=== PATIENT | male | born 1930 | race Caucasian/White ===

== ENCOUNTER 2016-09-07 19:50 | Inpatient (IN) | payer MEDICAID ==
[~2016-09-07] VITALS: Ht 172.7 cm; Wt 86.0 kg
[2016-09-07 21:15] LABS: URINE BLOOD (Dip) POC 1+ (NEGATIVE)
[2016-09-07] MEDS ORDERED: SODIUM CHLORIDE 0.9% 1L BAG IV* STA (21:20)
[2016-09-07] MEDS ORDERED: CEFEPIME 2GM/50 ML (PMX) 50 ML IVPB STA (21:20)
[2016-09-07] MEDS ORDERED: ACETAMINOPHEN 500 MG TAB PO STA (21:23)
[2016-09-07] MEDS ORDERED: VANCOMYCIN 1 GM (PMX) 250 ML IVPB ONE (21:30)
[2016-09-07] MEDS ORDERED: OMEG1CAP30 PO (21:43)
[2016-09-07] MEDS ORDERED: AMLO-145 PO (21:45)
[2016-09-07] MEDS ORDERED: IBUP-1542 PO (21:45)
[2016-09-07] MEDS ORDERED: PANT40TA4 PO (21:46)
[2016-09-07] MEDS ORDERED: KETO10DR5 OP (21:49)
[2016-09-07 21:55] LABS: ADD UMIC YES; UR ASCORBIC ACID NEGATIVE (NEGATIVE); UR BACTERIA MODERATE /HPF (NONE SEEN); UR BILIRUBIN (Dip) NEGATIVE (NEGATIVE); UR BLOOD (Dip) 1+ mg/dL (NEGATIVE); UR CLARITY SLIGHTLY CLOUDY (CLEAR); UR COLOR YELLOW (YELLOW); UR GLUCOSE (Dip) NEGATIVE (NEGATIVE); UR KETONES (Dip) NEGATIVE (NEGATIVE); UR LEUKOCYTE ESTERASE (Dip) 3+ Leu/ul (NEGATIVE); UR NITRITE (Dip) POSITIVE (NEGATIVE); UR RBC 12 /HPF (0-5); UR SPECIFIC GRAVITY (Dip) 1.018 (1.003-1.030); UR TOTAL PROTEIN (Dip) 2+ mg/dl (NEGATIVE); UR UROBILINOGEN (Dip) 2+ mg/dL (NEGATIVE)
[2016-09-07 22:13] LABS: WHITE BLOOD COUNT 10.2 10^3/ul (4.8-10.8)
[2016-09-07 22:14] LABS: BASOPHILS % 0.3 % (0.0-2.0); EOSINOPHILS % 0.1 % (0.0-7.0); HEMATOCRIT 40.7 % (42.0-52.0); HEMOGLOBIN 14.3 g/dl (14.0-18.0); MEAN CORPUSCULAR HEMOGLOBIN 32.1 pg (29.0-33.0); MEAN CORPUSCULAR HGB CONC 35.1 g/dl (32.0-37.0); MEAN CORPUSCULAR VOLUME 91.5 fl (82.0-101.0); MEAN PLATELET VOLUME 11.2 fl (7.4-10.4); MONOCYTE # 1.4 10^3/ul (0.3-0.9); MONOCYTES % 13.9 % (0.0-11.0); NEUTROPHIL # 7.7 10^3/ul (1.6-7.5); NEUTROPHILS % 75.2 % (39.0-77.0); PLATELET COUNT 126 10^3/UL (140-415); POSITIVE DIFF @See below; RED BLOOD COUNT 4.45 10^6/ul (4.70-6.10); RED CELL DISTRIBUTION WIDTH 13.9 % (11.5-14.5)
[2016-09-07 22:30] LABS: INR 0.9; PROTIME 12.1 Sec (12.2-14.2); PT RATIO 0.9
[2016-09-07 22:31] LABS: PARTIAL THROMBOPLASTIN TIME 32.5 Sec (25.0-35.0)
--- NOTE | 2016-09-07 22:34 | RADRPT ---
PROCEDURE: XR Chest. CLINICAL INDICATION: Possible sepsis. TECHNIQUE: PA and Lateral views of the chest were obtained. COMPARISON: None. FINDINGS: Cardiomegaly with tortuous thoracic aorta. Mild left lung base atelectasis versus airspace disease. Slight atelectasis at the right lung base. No signs of pleural fluid or pneumothorax are seen. The osseous structures and soft tissues are unremarkable. IMPRESSION: Mild left lung base atelectasis versus airspace disease. RPTAT: [facility] Physician Vazquez Date Time Electronically viewed and signed by Physician Vazquez on 09/07/2016 22:34 RS/
[2016-09-07 22:39] LABS: ALANINE AMINOTRANSFERASE 50 IU/L (13-69); ALBUMIN 4.4 g/dl (3.3-4.9); ALKALINE PHOSPHATASE 141 IU/L (42-121); ANION GAP 20 (8-16); ASPARTATE AMINO TRANSFERASE 41 IU/L (15-46); BILIRUBIN,INDIRECT 0.9 mg/dl (0-1.1); BILIRUBIN,TOTAL 0.9 mg/dl (0.2-1.3); BLOOD UREA NITROGEN 17 mg/dl (7-20); CALCIUM 9.2 mg/dl (8.4-10.2); CARBON DIOXIDE 26 mmol/L (21-31); CHLORIDE 96 mmol/L (97-110); CREATININE 0.64 mg/dl (0.61-1.24); GLUCOSE 115 mg/dl (70-220); POTASSIUM 4.7 mmol/L (3.5-5.1); SODIUM 137 mmol/L (135-144); TOTAL PROTEIN 8.4 g/dl (6.1-8.1)
[2016-09-07 22:58] LABS: TROPONIN-I < 0.012 ng/ml (0.00-0.12)
[2016-09-07] MEDS ORDERED: SOD CHLORIDE 0.9% 1,000 ML IV SCH (23:25)
--- NOTE | 2016-09-07 23:29 | ERA ---
ER Documentation Chief Complaint Date/Time DATE: 09/07/16 TIME: 23:26 Chief Complaint FEVER +N/V AND FREQUENT URINATION X 2 DAYS HPI This 85-year-old male complains of frequent urination with fever over the past 2 days. He said one episode of nausea vomiting. No abdominal pain no diarrhea no cough he does have a mild headache. He has no hematuria. Patient says that he is having occasional urge incontinence at times. No chest pain or shortness of breath. ROS All systems reviewed and are negative except as per history of present illness. Medications Home Meds Reported Medications Ketotifen Fumarate (Alaway) 10 Ml Drops, 10 ML OP BID, BOTTLE 09/07/16 Pantoprazole* (Pantoprazole*) 40 Mg Tablet.dr, 40 MG PO AC BREAKFAST, TAB 09/07/16 Ibuprofen* (Ibuprofen*) 600 Mg Tablet, 600 MG PO Q6H, TAB 09/07/16 Amlodipine Besylate* (Amlodipine Besylate*) 5 Mg Tablet, 5 MG PO DAILY Y for PRN , #30 TAB 09/07/16 Conway-3 Fatty Acids/Fish Oil ([place] 3 Fish Oil Softgel) 1 Each Capsule.dr, 1 EACH PO BID 09/07/16 Allergies Allergies: Coded Allergies: No Known Allergies (Verified Allergy, Unknown, 09/07/16) PMhx/Soc History of Surgery: No Anesthesia Reaction: No Hx Neurological Disorder: Yes (Dementia) Hx Respiratory Disorders: No Hx Cardiac Disorders: Yes (HTN) Hx Psychiatric Problems: No Hx Miscellaneous Medical Probl: Yes (ULCER) Hx Alcohol Use: No Hx Substance Use: No Hx Tobacco Use: No Smoking Status: Never smoker FmHx Family History: No coronary disease Physical Exam Vitals Vital Signs Date Time Temp Pulse Resp B/P Pulse Ox O2 Delivery O2 Flow Rate FiO2 09/07/16 21:10 109 20 140/88 99 Room Air 09/07/16 19:53 101.2 114 20 132/64 94 Physical Exam Const: Well-developed, well-nourished, nontoxic-appearing Head: Atraumatic, normocephalic Eyes: Normal Conjunctiva, PERRLA, EOMI, normal sclera, no nystagmus ENT: Normal External Ears, Nose and Mouth, moist mucus membranes. Neck: Full range of motion. No meningismus, no lymphadenopathy. Resp: Clear to auscultation bilaterally, no wheezing, rhonchi, rales Cardio: Tachycardia heart rate 103 no murmurs, S1 S2 present] Abd: Soft, non tender x 4, non distended. Normal bowel sounds, no guarding or rebound, no pulsitile abdominal masses or bruits Skin: No petechiae or rashes, no ecchymosis , no maculopapular rash Back: No midline or flank tenderness Ext: No cyanosis, or edema, FROM x 4, normal inspection, neurovascularly intact x 4 Neur: Awake and alert, STR 5/5 x 4, sensation intact x 4, no focal findings, cerebellum intact Psych: Normal Mood and Affect Result Diagram: 09/07/16215409/[id number]/162154 Results 24 hrs Laboratory Tests Test 09/07/16 21:11 09/07/16 21:19 09/07/16 21:55 Urine Color YELLOW Urine Clarity SLIGHTLY CLOUDY Urine pH 8.0 Urine Specific [place] 1.018 Urine Ketones NEGATIVEmg/dL Urine Nitrite POSITIVEmg/dL Urine Bilirubin NEGATIVEmg/dL Urine Urobilinogen 2+mg/dL Urine Leukocyte Esterase 3+Lima/ul Urine Microscopic RBC 12/HPF Urine Microscopic WBC > 182/HPF Urine Bacteria MODERATE/HPF Urine Hemoglobin 1+mg/dL Urine Glucose NEGATIVEmg/dL Urine Total Protein 2+mg/dl Bedside Urine pH (LAB) 7.0 Bedside Urine Protein (LAB) 2+ Bedside Urine Glucose (UA) Negative Bedside Urine Ketones (LAB) Negative Bedside Urine Blood 1+ Bedside Urine Nitrite (LAB) Positive Bedside Urine Leukocyte Esterase (L 2+ White Blood Count 10.210^3/ul Red Blood Count 4.4510^6/ul Hemoglobin 14.3g/dl Hematocrit 40.7% Mean Corpuscular Volume 91.5fl Mean Corpuscular Hemoglobin 32.1pg Mean Corpuscular Hemoglobin Concent 35.1g/dl Red Cell Distribution Width 13.9% Platelet Count 01922^3/UL Mean Platelet Volume 11.2fl Neutrophils % 75.2% Lymphocytes % 10.0% Monocytes % 13.9% Eosinophils % 0.1% Basophils % 0.3% Nucleated Red Blood Cells % 0.0/100WBC Neutrophils # 7.710^3/ul Lymphocytes # 1.010^3/ul Monocytes # 1.410^3/ul Eosinophils # 0.010^3/ul Basophils # 0.010^3/ul Nucleated Red Blood Cells # 0.010^3/ul Prothrombin Time 12.1Sec Prothrombin Time Ratio 0.9 INR International Normalized Ratio 0.90 Activated Partial Thromboplast Time 32.5Sec Sodium Level 137mmol/L Potassium Level 4.7mmol/L Chloride Level 96mmol/L Carbon Dioxide Level 26mmol/L Anion Gap 20 Blood Urea Nitrogen 17mg/dl Creatinine 0.64mg/dl Glucose Level 115mg/dl Lactic Acid Level 1.5mmol/L Calcium Level 9.2mg/dl Total Bilirubin 0.9mg/dl Direct Bilirubin 0.00mg/dl Indirect Bilirubin 0.9mg/dl Aspartate Amino Transf (AST/SGOT) 41IU/L Alanine Aminotransferase (ALT/SGPT) 50IU/L Alkaline Phosphatase 141IU/L Troponin I < 0.012ng/ml Total Protein 8.4g/dl Albumin 4.4g/dl Globulin 4.00g/dl Albumin/Globulin Ratio 1.10 Current Medications Medications (Trade) Dose Ordered Sig/Deejay Route PRN Reason Start Time Stop Time Status Last Admin Dose Admin Sodium Chloride 2680 ml 2,680 ml BOLUS OVER 2 HOURS STAT IV* 09/07/16 21:20 09/07/16 21:24 DC 09/07/16 21:58 Cefepime HCl 50 ml @ 100 mls/hr ONCE STAT IVPB 09/07/16 21:20 09/07/16 21:49 DC 09/07/16 22:06 Vancomycin HCl (Vancocin) 250 ml @ 125 mls/hr ONCE ONCE IVPB 09/07/16 21:30 09/07/16 23:29 09/07/16 22:50 Acetaminophen (Tylenol Tab) 1,000 mg ONCE STAT PO 09/07/16 21:23 09/07/16 21:35 DC 09/07/16 22:06 Procedures/MDM PROCEDURE: XR Chest. CLINICAL INDICATION: Possible sepsis. TECHNIQUE: PA and Lateral views of the chest were obtained. COMPARISON: None. FINDINGS: Cardiomegaly with tortuous thoracic aorta. Mild left lung base atelectasis versus airspace disease. Slight atelectasis at the right lung base. No signs of pleural fluid or pneumothorax are seen. The osseous structures and soft tissues are unremarkable. IMPRESSION: Mild left lung base atelectasis versus airspace disease. RPTAT: [facility] Physician Vazquez Date Time Electronically viewed and signed by María Boyle Physician on 09/07/2016 22:34 RS/ CC: DIANE LAW DO The patient has very foul-smelling urine and he does have a very severe urinary tract infection on his urinalysis Patient's had blood and urine cultures and given antibiotics and sepsis protocol fluid resuscitation. The patient does not have an elevated lactate. We will admit for IV antibiotics and fluids Departure Diagnosis: Primary Impression: Urinary tract infection Qualified Code: N30.00 - Acute cystitis without hematuria Additional Impression: Fever Qualified Code: R50.9 - Fever, unspecified fever cause Condition: Stable DIANE LAW DO Sep 07, 2016 23:29
[2016-09-07] MEDS ORDERED: ACETAMINOPHEN 325 MG TAB PO PRN (23:30)
[2016-09-07] MEDS ORDERED: ONDANSETRON 4 MG INJ IV PRN (23:30)
[2016-09-08] VITALS (10 sets, daily range): BP systolic 141–187; BP diastolic 63–89; PULSE 71–111; RESP 17–20; TEMP 100; Ht 172.7 cm; Wt 86.0 kg
[2016-09-08] MEDS ORDERED: morphine 4 MG/ML VIAL IV PRN (04:30)
[2016-09-08 05:57] LABS: ABNORMAL IP MESSAGE 1; BASOPHILS % 0.4 % (0.0-2.0); EOSINOPHILS % 0.4 % (0.0-7.0); HEMOGLOBIN 14.7 g/dl (14.0-18.0); LYMPHOCYTES # 2.3 10^3/ul (0.8-2.9); LYMPHOCYTES % 21.3 % (15.0-51.0); MEAN CORPUSCULAR HEMOGLOBIN 31.5 pg (29.0-33.0); MEAN CORPUSCULAR HGB CONC 34.2 g/dl (32.0-37.0); MEAN CORPUSCULAR VOLUME 92.1 fl (82.0-101.0); MEAN PLATELET VOLUME 10.5 fl (7.4-10.4); MONOCYTE # 1.6 10^3/ul (0.3-0.9); MONOCYTES % 15.4 % (0.0-11.0); NEUTROPHIL # 6.6 10^3/ul (1.6-7.5); NEUTROPHILS % 62.2 % (39.0-77.0); PLATELET COUNT 138 10^3/UL (140-415); POSITIVE DIFF @See below; RED BLOOD COUNT 4.67 10^6/ul (4.70-6.10); RED CELL DISTRIBUTION WIDTH 13.9 % (11.5-14.5); WHITE BLOOD COUNT 10.5 10^3/ul (4.8-10.8)
[2016-09-08 06:31] LABS: CALCIUM 9.4 mg/dl (8.4-10.2); CREATININE 0.62 mg/dl (0.61-1.24); MAGNESIUM 1.9 mg/dl (1.7-2.5); PHOSPHORUS 2.8 mg/dl (2.5-4.9); POTASSIUM 3.9 mmol/L (3.5-5.1)
[2016-09-08] MEDS: ACETAMINOPHEN 325 MG TAB PO PRN (06:45)
--- NOTE | 2016-09-08 06:56 | HP ---
Date/Time of Note Date/Time of Note DATE: 09/08/16 TIME: 06:52 Assessment/Plan VTE Prophylaxis VTE Prophylaxis Intervention: SCD's Lines/Catheters IV Catheter Type (from Nrs): Saline Lock Assessment/Plan Assessment/Plan 1. Sepsis as evidenced by fever and tachycardia: Secondary to UTI -Antibiotic, IV fluid -will follow up on urine and blood culture results -Pain management as needed 2. History of hypertension: Blood pressure within acceptable range -Adjust antihypertensives as needed HPI/ROS Admit Date/Time Admit Date/Time Sep 07, 2016 at 23:26 Hx of Present Illness This is an 85-year-old male with history of hypertension and urinary tract infection who presented to the emergency department complaining of fever and frequent urination. On presentation to the ER he was febrile with a temperature of 101.2, and a tachycardic with a heart rate of 114. WBC was 10.2. Urinalysis is consistent with severe UTI. Patient also has been having nausea and nonbloody nonbilious emesis for the past few days. No abdominal pain or flank pain. Denies chest pain or shortness of breath. . PMH/Family/Social Past Medical History Medical History: hypertension Social History Smoking Status: Never smoker Exam/Review of Systems Vital Signs Vitals Vital Signs Date Time Temp Pulse Resp B/P Pulse Ox O2 Delivery O2 Flow Rate FiO2 09/08/16 04:27 71 09/08/16 01:42 100.0 17 139/60 96 Room Air Intake and Output 09/07/16 09/07/16 09/08/16 15:00 23:00 07:00 Intake Total 1850 ml Balance 1850 ml Exam Constitutional: other (The appearance is slightly anxious.) Head: atraumatic, normocephalic Eyes: EOMI, PERRL Respiratory: clear to auscultation, normal air movement Cardiovascular: other (Tachycardic with regular rhythm) Gastrointestinal: non-tender, soft Extremities: normal pulses Labs Result Diagram: 09/08/16 0545 09/08/16 0545 Medications Medications Current Medications Ceftriaxone Sodium (Rocephin) 50 ml @ 100 mls/hr Q12 IVPB ; Start 09/08/16 at 09 :00 Ondansetron HCl (Zofran Inj) 4 mg Q6H PRN IV NAUSEA AND/OR VOMITING; Start 09/08 at 04:30 Acetaminophen (Tylenol Tab) 650 mg Q6H PRN PO PAIN AND OR ELEVATED TEMP Last administered on 09/08/16 06:45; Admin Dose 650 MG; Start 09/08/16 at 04:30 Morphine Sulfate 2 mg 2 mg Q4H PRN IV PAIN LEVEL 7-10; Start 09/08/16 at 04:30 Sodium Chloride (NS) 1,000 ml @ 75 mls/hr [id number] IV ; Start 09/08/16 at 04:30 Heparin Sodium (Porcine) (Heparin (5000 Units/0.5 ml)) 5,000 unit BID SC ; Start 09/08/16 at 09:00 SUZETTE CERNA MD Sep 08, 2016 06:56
[2016-09-08] MEDS ORDERED: VANCOMYCIN IV PER PHARMACY XX SCH (07:00)
[2016-09-08] MEDS: SOD CHLORIDE 0.9% 1,000 ML IV SCH ×2 (07:50→17:46)
[2016-09-08] MEDS: ONDANSETRON 4 MG INJ IV PRN ×2 (07:50→16:33)
[2016-09-08] MEDS: CEFTRIAXONE 1 GM/50 ML (PMX) 50 ML IVPB SCH ×2 (08:45→21:38)
[2016-09-08] MEDS: HEPARIN 5,000 UNIT/0.5 ML VIAL SC SCH ×2 (08:46→21:44)
[2016-09-08] MEDS: VANCOMYCIN 1.25 GM in SOD CHLORIDE 0.9% 250 ML IVPB SCH (11:16)
[2016-09-08] MEDS ORDERED: AL HYDROX/MG HYDROX/SIMETH 30 ML CUP PO PRN (16:00)
--- NOTE | 2016-09-08 17:13 | PN ---
Date/Time of Note Date/Time of Note DATE: 09/08/16 TIME: 17:09 Assessment/Plan VTE Prophylaxis VTE Prophylaxis Intervention: SCD's Lines/Catheters [facility] Saline Lock Assessment/Plan Chief Complaint/Hosp Course Impression and plan 1. Sepsis secondary to UTI. Follow-up on urine cultures. Continue antibiotics for now. 2. Essential hypertension. Continue antihypertensives and adjust as needed 3. Nausea. provide With antiemetics as needed Disposition and plan: Continue antibiotics. Follow up on final cultures. Continue in-house monitoring Discussed plan of care with Dr. Tabares Problems: Subjective 24 Hr Interval Summary Free Text/Dictation Reports having some abdominal discomfort. RN at bedside. Afebrile at present. Exam/Review of Systems Vital Signs Vitals Vital Signs Date Time Temp Pulse Resp B/P Pulse Ox O2 Delivery O2 Flow Rate FiO2 09/08/16 16:27 76 09/08/16 15:42 98.0 18 167/70 97 09/08/16 01:42 Room Air Intake and Output 09/07/16 09/07/16 09/08/16 15:00 23:00 07:00 Intake Total 1850 ml Balance 1850 ml Exam Constitutional: alert, oriented Psych: nl mood/affect Respiratory: normal air movement Cardiovascular: regular rate and rhythm Gastrointestinal: soft, tender Musculoskeletal: nl extremities to inspection Neurological: LAW OFFICE ASSISTANT II-XII intact, nl mental status, nl speech Skin: nl turgor Results Result Diagram: 09/08/16 0545 09/08/16 0545 Results 24 hrs Laboratory Tests Test 09/07/16 21:11 09/07/16 21:19 09/07/16 21:55 09/07/16 23:55 Urine Color YELLOW Urine Clarity SLIGHTLY CLOUDY A Urine pH 8.0 Urine Specific [place] 1.018 Urine Ketones NEGATIVE Urine Nitrite POSITIVE A Urine Bilirubin NEGATIVE Urine Urobilinogen 2+ H Urine Leukocyte Esterase 3+ H Urine Microscopic RBC 12 H Urine Microscopic WBC > 182 H Urine Bacteria MODERATE Urine Hemoglobin 1+ H Urine Glucose NEGATIVE Urine Total Protein 2+ H Bedside Urine pH (LAB) 7.0 Bedside Urine Protein (LAB) 2+ H Bedside Urine Glucose (UA) Negative Bedside Urine Ketones (LAB) Negative Bedside Urine Blood 1+ H Bedside Urine Nitrite (LAB) Positive H Bedside Urine Leukocyte Esterase (L 2+ H White Blood Count 10.2 Red Blood Count 4.45 L Hemoglobin 14.3 Hematocrit 40.7 L Mean Corpuscular Volume 91.5 Mean Corpuscular Hemoglobin 32.1 Mean Corpuscular Hemoglobin Concent 35.1 Red Cell Distribution Width 13.9 Platelet Count 126 L Mean Platelet Volume 11.2 H Neutrophils % 75.2 Lymphocytes % 10.0 L Monocytes % 13.9 H Eosinophils % 0.1 Basophils % 0.3 Nucleated Red Blood Cells % 0.0 Neutrophils # 7.7 H Lymphocytes # 1.0 Monocytes # 1.4 H Eosinophils # 0.0 Basophils # 0.0 Nucleated Red Blood Cells # 0.0 Prothrombin Time 12.1 L Prothrombin Time Ratio 0.9 INR International Normalized Ratio 0.90 Activated Partial Thromboplast Time 32.5 Sodium Level 137 Potassium Level 4.7 Chloride Level 96 L Carbon Dioxide Level 26 Anion Gap 20 H Blood Urea Nitrogen 17 Creatinine 0.64 Glucose Level 115 Lactic Acid Level 1.5 1.2 Calcium Level 9.2 Total Bilirubin 0.9 Direct Bilirubin 0.00 Indirect Bilirubin 0.9 Aspartate Amino Transf (AST/SGOT) 41 Alanine Aminotransferase (ALT/SGPT) 50 Alkaline Phosphatase 141 H Troponin I < 0.012 Total Protein 8.4 H Albumin 4.4 Globulin 4.00 H Albumin/Globulin Ratio 1.10 Test 09/08/16 01:58 09/08/16 05:45 Lactic Acid Level 1.3 White Blood Count 10.5 Red Blood Count 4.67 L Hemoglobin 14.7 Hematocrit 43.0 Mean Corpuscular Volume 92.1 Mean Corpuscular Hemoglobin 31.5 Mean Corpuscular Hemoglobin Concent 34.2 Red Cell Distribution Width 13.9 Platelet Count 138 L Mean Platelet Volume 10.5 H Neutrophils % 62.2 Lymphocytes % 21.3 Monocytes % 15.4 H Eosinophils % 0.4 Basophils % 0.4 Nucleated Red Blood Cells % 0.0 Neutrophils # 6.6 Lymphocytes # 2.3 Monocytes # 1.6 H Eosinophils # 0.0 Basophils # 0.0 Nucleated Red Blood Cells # 0.0 Sodium Level 144 Potassium Level 3.9 Chloride Level 99 Carbon Dioxide Level 28 Anion Gap 21 H Blood Urea Nitrogen 12 Creatinine 0.62 Glucose Level 112 Calcium Level 9.4 Phosphorus Level 2.8 Magnesium Level 1.9 Medications Medications Current Medications Ceftriaxone Sodium (Rocephin) 50 ml @ 100 mls/hr Q12 IVPB Last administered on 09/08/16 08:45; Admin Dose 100 MLS/HR; Start 09/08/16 at 09:00 Ondansetron HCl (Zofran Inj) 4 mg Q6H PRN IV NAUSEA AND/OR VOMITING Last administered on 09/08/16 16:33; Admin Dose 4 MG; Start 09/08/16 at 04:30 Acetaminophen (Tylenol Tab) 650 mg Q6H PRN PO PAIN AND OR ELEVATED TEMP Last administered on 09/08/16 06:45; Admin Dose 650 MG; Start 09/08/16 at 04:30 Morphine Sulfate 2 mg 2 mg Q4H PRN IV PAIN LEVEL 7-10; Start 09/08/16 at 04:30 Sodium Chloride (NS) 1,000 ml @ 75 mls/hr [id number] IV Last administered on 07:50; Admin Dose 75 MLS/HR; Start 09/08/16 at 04:30 Heparin Sodium (Porcine) (Heparin (5000 Units/0.5 ml)) 5,000 unit BID SC Last administered on 09/08/16 08:46; Admin Dose 5,000 UNIT; Start 09/08/16 at 09:00 Metoclopramide HCl 10 mg 10 mg Q6H PRN IV N/V; Start 09/08/16 at 07:30 Vancomycin HCl/ Sodium Chloride (Vancocin/NS) 250 ml @ 83.333 mls/ hr Q24H IVPB Last administered on 09/08/16 11:16; Admin Dose 83.333 MLS/HR; Start at 11:00 Pantoprazole (Protonix Iv) 40 mg BID@06,18 IV ; Start 09/08/16 at 18:00 Al Hydrox/Mg Hydrox/Simethicone (Mag-Al Plus) 30 ml Q4H PRN PO GASTROINTESTINAL UPSET; Start 09/08/16 at 16:00 Hydralazine HCl (Apresoline) 10 mg Q4H PRN IV sbp>160; Start 09/08/16 at 16:00 BIRD FAJARDO Sep 08, 2016 17:13
[2016-09-08] MEDS: PANTOPRAZOLE 40 MG INJ IV SCH (17:46)
[2016-09-09] VITALS (13 sets, daily range): BP systolic 102–180; BP diastolic 50–84; PULSE 70–86; RESP 18–20
[2016-09-09] MEDS: hydrALAzine 20 MG INJ IV PRN ×2 (00:52→22:05)
[2016-09-09] MEDS: PANTOPRAZOLE 40 MG INJ IV SCH ×2 (05:49→17:15)
[2016-09-09] MEDS: SOD CHLORIDE 0.9% 1,000 ML IV SCH ×2 (06:18→20:31)
[2016-09-09 06:39] LABS: BASOPHILS % 0.1 % (0.0-2.0); EOSINOPHILS % 0.1 % (0.0-7.0); HEMATOCRIT 40.3 % (42.0-52.0); HEMOGLOBIN 14.4 g/dl (14.0-18.0); LYMPHOCYTES # 1.3 10^3/ul (0.8-2.9); MEAN CORPUSCULAR HEMOGLOBIN 31.6 pg (29.0-33.0); MEAN CORPUSCULAR HGB CONC 35.7 g/dl (32.0-37.0); MEAN CORPUSCULAR VOLUME 88.4 fl (82.0-101.0); MEAN PLATELET VOLUME 11.2 fl (7.4-10.4); MONOCYTE # 1.2 10^3/ul (0.3-0.9); MONOCYTES % 11.3 % (0.0-11.0); NEUTROPHIL # 7.9 10^3/ul (1.6-7.5); NEUTROPHILS % 76.1 % (39.0-77.0); PLATELET COUNT 152 10^3/UL (140-415); RED BLOOD COUNT 4.56 10^6/ul (4.70-6.10); RED CELL DISTRIBUTION WIDTH 13.3 % (11.5-14.5); WHITE BLOOD COUNT 10.4 10^3/ul (4.8-10.8)
[2016-09-09 07:12] LABS: CALCIUM 9.1 mg/dl (8.4-10.2); CREATININE 0.55 mg/dl (0.61-1.24)
[2016-09-09 07:49] LABS: POTASSIUM 3.3 mmol/L (3.5-5.1)
[2016-09-09] MEDS: CEFTRIAXONE 1 GM/50 ML (PMX) 50 ML IVPB SCH ×2 (08:41→20:25)
[2016-09-09] MEDS: HEPARIN 5,000 UNIT/0.5 ML VIAL SC SCH ×2 (08:42→20:29)
--- NOTE | 2016-09-09 10:07 | PN ---
Date/Time of Note Date/Time of Note DATE: 09/09/16 TIME: 10:04 Assessment/Plan VTE Prophylaxis VTE Prophylaxis Intervention: SCD's Assessment/Plan Chief Complaint/Hosp Course Impression and plan 1. Sepsis secondary to UTI. continue antibiotics. Awaiting final cultures. appears to be improving. 2. Essential hypertension. Continue antihypertensives and adjust as needed. Stable 3. Nausea. provide With antiemetics as needed Disposition and plan: Continue antibiotics. encourage participation with physical therapy. continue inpatient monitoring. Awaiting final urine cultures Discussed plan of care with Dr. Tabares Problems: Subjective 24 Hr Interval Summary Free Text/Dictation reports less pain on bilateral flank Exam/Review of Systems Vital Signs Vitals Vital Signs Date Time Temp Pulse Resp B/P Pulse Ox O2 Delivery O2 Flow Rate FiO2 09/09/16 08:27 70 09/09/16 07:42 97.7 18 116/64 93 09/08/16 01:42 Room Air Intake and Output 09/08/16 09/08/16 09/09/16 15:00 23:00 07:00 Intake Total 1350 ml 820 ml Balance 1350 ml 820 ml Exam Constitutional: alert, oriented Psych: nl mood/affect Respiratory: normal air movement Cardiovascular: regular rate and rhythm Gastrointestinal: soft, tender Musculoskeletal: nl extremities to inspection Neurological: SUPERINTENDENT METERS II-XII intact, nl mental status, nl speech Skin: nl turgor Results Result Diagram: 09/09/16 0542 09/09/16 0542 Results 24 hrs Laboratory Tests Test 09/09/16 05:42 White Blood Count 10.4 Red Blood Count 4.56 L Hemoglobin 14.4 Hematocrit 40.3 L Mean Corpuscular Volume 88.4 Mean Corpuscular Hemoglobin 31.6 Mean Corpuscular Hemoglobin Concent 35.7 Red Cell Distribution Width 13.3 Platelet Count 152 Mean Platelet Volume 11.2 H Neutrophils % 76.1 Lymphocytes % 12.0 L Monocytes % 11.3 H Eosinophils % 0.1 Basophils % 0.1 Nucleated Red Blood Cells % 0.0 Neutrophils # 7.9 H Lymphocytes # 1.3 Monocytes # 1.2 H Eosinophils # 0.0 Basophils # 0.0 Nucleated Red Blood Cells # 0.0 Sodium Level 133 L Potassium Level 3.3 L Chloride Level 90 L Carbon Dioxide Level 24 Anion Gap 22 H Blood Urea Nitrogen 17 Creatinine 0.55 L Glucose Level 115 Calcium Level 9.1 Medications Medications Current Medications Ceftriaxone Sodium (Rocephin) 50 ml @ 100 mls/hr Q12 IVPB Last administered on 09/09/16 08:41; Admin Dose 100 MLS/HR; Start 09/08/16 at 09:00 Ondansetron HCl (Zofran Inj) 4 mg Q6H PRN IV NAUSEA AND/OR VOMITING Last administered on 09/08/16 16:33; Admin Dose 4 MG; Start 09/08/16 at 04:30 Acetaminophen (Tylenol Tab) 650 mg Q6H PRN PO PAIN AND OR ELEVATED TEMP Last administered on 09/08/16 06:45; Admin Dose 650 MG; Start 09/08/16 at 04:30 Morphine Sulfate 2 mg 2 mg Q4H PRN IV PAIN LEVEL 7-10; Start 09/08/16 at 04:30 Sodium Chloride (NS) 1,000 ml @ 75 mls/hr [id number] IV Last administered on 07:50; Admin Dose 75 MLS/HR; Start 09/08/16 at 04:30 Heparin Sodium (Porcine) (Heparin (5000 Units/0.5 ml)) 5,000 unit BID SC Last administered on 09/09/16 08:42; Admin Dose 5,000 UNIT; Start 09/08/16 at 09:00 Metoclopramide HCl 10 mg 10 mg Q6H PRN IV N/V; Start 09/08/16 at 07:30 Vancomycin HCl/ Sodium Chloride (Vancocin/NS) 250 ml @ 83.333 mls/ hr Q24H IVPB Last administered on 09/08/16 11:16; Admin Dose 83.333 MLS/HR; Start at 11:00 Pantoprazole (Protonix Iv) 40 mg BID@06,18 IV Last administered on 09/09/16 05: 49; Admin Dose 40 MG; Start 09/08/16 at 18:00 Al Hydrox/Mg Hydrox/Simethicone (Mag-Al Plus) 30 ml Q4H PRN PO GASTROINTESTINAL UPSET; Start 09/08/16 at 16:00 Hydralazine HCl (Apresoline) 10 mg Q4H PRN IV sbp>160 Last administered on 00:52; Admin Dose 10 MG; Start 09/08/16 at 16:00 BIRD FAJARDO Sep 09, 2016 10:07
[2016-09-09] MEDS: VANCOMYCIN 1.25 GM in SOD CHLORIDE 0.9% 250 ML IVPB SCH (11:26)
[2016-09-09] MEDS: ACETAMINOPHEN 325 MG TAB PO PRN (20:22)
[2016-09-09] MEDS: ONDANSETRON 4 MG INJ IV PRN (20:41)
[2016-09-09] MEDS: morphine 2 MG INJ IV PRN (22:08)
[2016-09-09] MEDS: METOCLOPRAMIDE 10 MG INJ IV PRN (23:59)
[2016-09-10] VITALS (12 sets, daily range): BP systolic 100–194; BP diastolic 55–86; PULSE 67–115; RESP 16–20
[2016-09-10] MEDS: PANTOPRAZOLE 40 MG INJ IV SCH ×2 (06:10→17:05)
[2016-09-10] MEDS: METOCLOPRAMIDE 10 MG INJ IV PRN ×2 (06:25→16:52)
[2016-09-10] MEDS: ACETAMINOPHEN 325 MG TAB PO PRN ×2 (06:27→16:51)
[2016-09-10 06:31] LABS: BASOPHILS % 0.1 % (0.0-2.0); EOSINOPHILS % 0.1 % (0.0-7.0); HEMATOCRIT 40.1 % (42.0-52.0); HEMOGLOBIN 14.3 g/dl (14.0-18.0); LYMPHOCYTES # 1.8 10^3/ul (0.8-2.9); LYMPHOCYTES % 20.4 % (15.0-51.0); MEAN CORPUSCULAR HEMOGLOBIN 31.3 pg (29.0-33.0); MEAN CORPUSCULAR HGB CONC 35.7 g/dl (32.0-37.0); MEAN CORPUSCULAR VOLUME 87.7 fl (82.0-101.0); MEAN PLATELET VOLUME 10.6 fl (7.4-10.4); MONOCYTE # 1.1 10^3/ul (0.3-0.9); MONOCYTES % 12.2 % (0.0-11.0); NEUTROPHIL # 5.8 10^3/ul (1.6-7.5); NEUTROPHILS % 66.9 % (39.0-77.0); PLATELET COUNT 198 10^3/UL (140-415); RED BLOOD COUNT 4.57 10^6/ul (4.70-6.10); RED CELL DISTRIBUTION WIDTH 13.4 % (11.5-14.5); WHITE BLOOD COUNT 8.7 10^3/ul (4.8-10.8)
[2016-09-10 06:48] LABS: CREATININE 0.72 mg/dl (0.61-1.24); POTASSIUM 3.5 mmol/L (3.5-5.1)
[2016-09-10] MEDS ORDERED: ARTIFICIAL TEARS 15 ML OPH BOTH EYES PRN (07:30)
[2016-09-10] MEDS: CEFTRIAXONE 1 GM/50 ML (PMX) 50 ML IVPB SCH ×2 (08:25→20:39)
[2016-09-10] MEDS: HEPARIN 5,000 UNIT/0.5 ML VIAL SC SCH ×2 (08:26→20:41)
[2016-09-10] MEDS: SOD CHLORIDE 0.9% 1,000 ML IV SCH ×2 (09:50→23:10)
[2016-09-10] MEDS: VANCOMYCIN 1.25 GM in SOD CHLORIDE 0.9% 250 ML IVPB SCH (11:32)
--- NOTE | 2016-09-10 12:57 | PN ---
Date/Time of Note Date/Time of Note DATE: 09/10/16 TIME: 12:53 Assessment/Plan VTE Prophylaxis VTE Prophylaxis Intervention: SCD's Lines/Catheters IV Catheter Type (from Nrs): Saline Lock Assessment/Plan Chief Complaint/Hosp Course Impression and plan 1. Sepsis secondary to UTI/pyelonephritis. continue antibiotics. Wound culture did show E. coli. Still with pain. Continue regimen. 2. Essential hypertension. Continue antihypertensives and adjust as needed. Stable 3. Nausea. provide With antiemetics as needed Disposition and plan: Continue antibiotics. Await for clinical improvement of pyelonephritis symptoms. Continue with analgesics. Is slowly improving. Discussed plan of care with Dr. Tabares Problems: Subjective 24 Hr Interval Summary Free Text/Dictation Still with reported bilateral flank pain. No fever seen today for Exam/Review of Systems Vital Signs Vitals Vital Signs Date Time Temp Pulse Resp B/P Pulse Ox O2 Delivery O2 Flow Rate FiO2 09/10/16 11:45 98.5 78 16 111/62 95 09/09/16 20:15 Nasal Cannula 2.0 Intake and Output 09/09/16 09/09/16 09/10/16 14:59 22:59 06:59 Intake Total 1150 ml 700 ml Balance 1150 ml 700 ml Exam Constitutional: alert, oriented Psych: nl mood/affect Respiratory: normal air movement Cardiovascular: regular rate and rhythm Gastrointestinal: soft, tender, less on flank today Musculoskeletal: nl extremities to inspection Neurological: POLITICAL ORGANIZER II-XII intact, nl mental status, nl speech Skin: nl turgor Results Result Diagram: 09/10/16 0519 09/10/16 0519 Results 24 hrs Laboratory Tests Test 09/10/16 05:19 White Blood Count 8.7 Red Blood Count 4.57 L Hemoglobin 14.3 Hematocrit 40.1 L Mean Corpuscular Volume 87.7 Mean Corpuscular Hemoglobin 31.3 Mean Corpuscular Hemoglobin Concent 35.7 Red Cell Distribution Width 13.4 Platelet Count 198 # Mean Platelet Volume 10.6 H Neutrophils % 66.9 Lymphocytes % 20.4 Monocytes % 12.2 H Eosinophils % 0.1 Basophils % 0.1 Nucleated Red Blood Cells % 0.0 Neutrophils # 5.8 Lymphocytes # 1.8 Monocytes # 1.1 H Eosinophils # 0.0 Basophils # 0.0 Nucleated Red Blood Cells # 0.0 Sodium Level 136 Potassium Level 3.5 Chloride Level 95 L Carbon Dioxide Level 25 Anion Gap 20 H Blood Urea Nitrogen 24 H Creatinine 0.72 Glucose Level 125 Calcium Level 9.0 Medications Medications Current Medications Ceftriaxone Sodium (Rocephin) 50 ml @ 100 mls/hr Q12 IVPB Last administered on 09/10/16 08:25; Admin Dose 100 MLS/HR; Start 09/08/16 at 09:00 Ondansetron HCl (Zofran Inj) 4 mg Q6H PRN IV NAUSEA AND/OR VOMITING Last administered on 09/09/16 20:41; Admin Dose 4 MG; Start 09/08/16 at 04:30 Acetaminophen 650 mg 650 mg Q6H PRN PO PAIN AND OR ELEVATED TEMP Last administered on 09/10/16 06:27; Admin Dose 650 MG; Start 09/08/16 at 04:30 Sodium Chloride (NS) 1,000 ml @ 75 mls/hr [id number] IV Last administered on 20:31; Admin Dose 75 MLS/HR; Start 09/08/16 at 04:30 Heparin Sodium (Porcine) (Heparin (5000 Units/0.5 ml)) 5,000 unit BID SC Last administered on 09/10/16 08:26; Admin Dose 5,000 UNIT; Start 09/08/16 at 09:00 Metoclopramide HCl 10 mg 10 mg Q6H PRN IV N/V Last administered on 09/10/16 06: 25; Admin Dose 10 MG; Start 09/08/16 at 07:30 Vancomycin HCl/ Sodium Chloride (Vancocin/NS) 250 ml @ 83.333 mls/ hr Q24H IVPB Last administered on 09/10/16 11:32; Admin Dose 83.333 MLS/HR; Start at 11:00 Pantoprazole (Protonix Iv) 40 mg BID@06,18 IV Last administered on 09/10/16 06: 10; Admin Dose 40 MG; Start 09/08/16 at 18:00 Al Hydrox/Mg Hydrox/Simethicone (Mag-Al Plus) 30 ml Q4H PRN PO GASTROINTESTINAL UPSET; Start 09/08/16 at 16:00 Hydralazine HCl (Apresoline) 10 mg Q4H PRN IV sbp>160 Last administered on 22:05; Admin Dose 10 MG; Start 09/08/16 at 16:00 Morphine Sulfate (morphine) 2 mg Q2H PRN IV PAIN LEVEL 7-10 Last administered on 09/09/16 22:08; Admin Dose 2 MG; Start 09/09/16 at 12:00 Eye Lubricant (Artificial Tears Oph) 2 drop Q6H PRN BOTH EYES DRY EYES; Start 09/10/16 at 07:30 BIRD FAJARDO Sep 10, 2016 12:57
[2016-09-10] MEDS: hydrALAzine 20 MG INJ IV PRN (16:54)
[2016-09-10] MEDS: ONDANSETRON 4 MG INJ IV PRN (20:38)
[2016-09-10] MEDS: morphine 2 MG INJ IV PRN (20:43)
[2016-09-11] VITALS (10 sets, daily range): BP systolic 91–131; BP diastolic 53–63; PULSE 68–87; RESP 18–20
[2016-09-11] MEDS: PANTOPRAZOLE 40 MG INJ IV SCH (05:14)
[2016-09-11 05:53] LABS: BASOPHILS % 0.4 % (0.0-2.0); EOSINOPHILS % 0.3 % (0.0-7.0); HEMATOCRIT 38.3 % (42.0-52.0); HEMOGLOBIN 13.2 g/dl (14.0-18.0); LYMPHOCYTES # 2.4 10^3/ul (0.8-2.9); LYMPHOCYTES % 34.5 % (15.0-51.0); MEAN CORPUSCULAR HEMOGLOBIN 30.7 pg (29.0-33.0); MEAN CORPUSCULAR HGB CONC 34.5 g/dl (32.0-37.0); MEAN CORPUSCULAR VOLUME 89.1 fl (82.0-101.0); MEAN PLATELET VOLUME 10.1 fl (7.4-10.4); MONOCYTES % 14.8 % (0.0-11.0); NEUTROPHIL # 3.5 10^3/ul (1.6-7.5); NEUTROPHILS % 49.7 % (39.0-77.0); PLATELET COUNT 203 10^3/UL (140-415); RED CELL DISTRIBUTION WIDTH 13.9 % (11.5-14.5)
[2016-09-11 06:33] LABS: CALCIUM 8.8 mg/dl (8.4-10.2); CREATININE 0.79 mg/dl (0.61-1.24); POTASSIUM 3.5 mmol/L (3.5-5.1)
[2016-09-11] MEDS: SOD CHLORIDE 0.9% 1,000 ML IV SCH (06:39)
[2016-09-11] MEDS: CEFTRIAXONE 1 GM/50 ML (PMX) 50 ML IVPB SCH (08:26)
[2016-09-11] MEDS: HEPARIN 5,000 UNIT/0.5 ML VIAL SC SCH (08:27)
[2016-09-11] MEDS: VANCOMYCIN 1.25 GM in SOD CHLORIDE 0.9% 250 ML IVPB SCH (11:39)
--- NOTE | 2016-09-11 12:30 | PDOCDIS ---
Discharge Instructions DIAGNOSIS Discharge Diagnosis UTI CONDITION Patient Condition: Stable HOME CARE INSTRUCTIONS: Diet Instructions: RegularSpecial Diet: reg FOLLOW UP/APPOINTMENTS Follow-up Plan Juarez Vásquez MD [facility] Office Address [address] [place], [place] [id number] Office OTHER ORDERS: Other Orders: 1. Complete the course of antibiotics. 2. Regular diet as tolerated. 3. Resume home medications. 4. Activities as tolerated. 5. Follow-up with your PCP in 1 week. I f you do not have a PCP, call Dr. Shana Vásquez's office. NATHALIA SWARTZ NP Sep 11, 2016 12:30
[2016-09-11] MEDS ORDERED: CEPH500C PO (12:33)
--- NOTE | 2016-09-11 19:22 | DS ---
Date/Time of Note Date/Time of Note DATE: 09/11/16 TIME: 19:21 Discharge Summary Admission/Discharge Info Admit Date/Time Sep 07, 2016 at 23:26 Discharge Date/Time Sep 11, 2016 at 17:10 Discharge Diagnosis 1. Status post sepsis secondary to urinary tract infection. 2. Essential hypertension. 3. Debility. Patient Condition: Stable Procedures CXR IMPRESSION: Mild left lung base atelectasis versus airspace disease. Hx of Present Illness This is an 85-year-old male with history of hypertension and prior urinary tract infection who presented to the emergency department complaining of fever and frequent urination. On presentation to the ER he was febrile with a temperature of 101.2, and a tachycardic with a heart rate of 114. WBC was 10.2. Urinalysis was consistent with severe UTI. Patient also has been having nausea and nonbloody nonbilious emesis for the past few days. No abdominal pain or flank pain. Denies chest pain or shortness of breath. . Hospital Course The patient was admitted to inpatient setting. Pancultures were ordered. The patient was started on empiric antibiotics. The patient's blood cultures remained negative. The patient's urine culture showed E. coli that was resistant to fluoroquinolones and penicillins. The patient was maintained on cephalosporins. Patient had no evidence of any septic shock. The patient's vital signs remained stable. The patient has underlying essential hypertension. He was maintained on antihypertensives for the same. The patient had underlying nausea and vomiting. This could have been most probably secondary to underlying urinary tract infection. The patient was treated symptomatically. The patient was also noticed to be debilitated. Therefore, the patient underwent physical therapy evaluation. Physical therapy recommended home health PT with 24X[employer] caregiver. Case management consult was obtained for home health physical therapy for a home safety and home PT evaluation. The patient lives with his family and has 24X7 care available. The patient had a stable hospital course. The patient has remained afebrile for more than 24 hours. The patient has no evidence of any sepsis at this time. Hence the patient will be discharged home on oral antibiotics to be followed up with outpatient primary care physician. Discharge Instructions 1. Complete the course of antibiotics. 2. Regular diet as tolerated. 3. Resume home medications. 4. Activities as tolerated. 5. Follow-up with your PCP in 1 week. I f you do not have a PCP, call Dr. Shana Vásquez's office. The patient/family verbalized understanding of the discharge instructions. Case discussed with Dr. Galan. Home Meds Active Scripts Cephalexin* (Cephalexin*) 500 Mg Capsule, 500 MG PO Q12H for 10 Days, #20 CAP Prov:ASHISHROLANDONATHALIA BUSINESS DEVELOPMENT MANAGER 09/11/16 Reported Medications Ketotifen Fumarate (Alaway) 10 Ml Drops, 10 ML OP BID, BOTTLE 09/07/16 Pantoprazole* (Pantoprazole*) 40 Mg Tablet.dr, 40 MG PO AC BREAKFAST, TAB 09/07/16 Ibuprofen* (Ibuprofen*) 600 Mg Tablet, 600 MG PO Q6H, TAB 09/07/16 Amlodipine Besylate* (Amlodipine Besylate*) 5 Mg Tablet, 5 MG PO DAILY Y for ELEVATED DIASTOLIC BP, #30 TAB 09/07/16 Lindsey-3 Fatty Acids/Fish Oil (Lindsey 3 Fish Oil Softgel) 1 Each Capsule., 1 EACH PO BID 09/07/16 Follow-up Plan Follow-up with your primary care physician 1 week. If you do not have a primary care physician, please call Dr. Juarez Vásquez's office. Primary Care Provider Care Physician No Primary Time spent on discharge: > 30 minutes Pending Labs Name: LILLIANA ZHAONCIO Age/Sex: 85/M Attend Dr: SUZETTE CERNA MD Acct: [id number] MR# : [id number] : 1930 Location: [facility] 188-A Admit: 09/07/16 Specimen: [id number] Status: Complete Billy: 09/07/16 Rcvd: 09/07 Source: CATHE[facility] U Sp Descrip: Procedure Result Microbiology URINE CULTURE Final Organism 1 ESCHERICHIA COLI COLONY COUNT >100,000 CFU/ml E COLI M.I.C. RX --------- --- AMIKACIN 4 S AMPICILLIN >=32 R CEFAZOLIN <=4 S CEFOTAXIME S CIPROFLOXACIN >=4 R GENTAMICIN <=1 S LEVOFLOXACIN >=8 R NITROFURANTOIN 32 S TOBRAMYCIN >=16 R TRIMETHOPRIM/SULFAMETHOXAZOLE <=20 S Laboratory Tests Test 09/11/16 05:32 09/11/16 09:55 White Blood Count 7.010^3/ul (4.8-10.8) Red Blood Count 4.3010^6/ul (4.70-6.10) Hemoglobin 13.2g/dl (14.0-18.0) Hematocrit 38.3% (42.0-52.0) Mean Corpuscular Volume 89.1fl (82.0-101.0) Mean Corpuscular Hemoglobin 30.7pg (29.0-33.0) Mean Corpuscular Hemoglobin Concent 34.5g/dl (32.0-37.0) Red Cell Distribution Width 13.9% (11.5-14.5) Platelet Count 49912^3/UL (140-415) Mean Platelet Volume 10.1fl (7.4-10.4) Neutrophils % 49.7% (39.0-77.0) Lymphocytes % 34.5% (15.0-51.0) Monocytes % 14.8% (0.0-11.0) Eosinophils % 0.3% (0.0-7.0) Basophils % 0.4% (0.0-2.0) Nucleated Red Blood Cells % 0.0/100WBC (0.0-0.0) Neutrophils # 3.510^3/ul (1.6-7.5) Lymphocytes # 2.410^3/ul (0.8-2.9) Monocytes # 1.010^3/ul (0.3-0.9) Eosinophils # 0.010^3/ul (0.0-0.5) Basophils # 0.010^3/ul (0.0-0.1) Nucleated Red Blood Cells # 0.010^3/ul (0.0-0.0) Sodium Level 140mmol/L (135-144) Potassium Level 3.5mmol/L (3.5-5.1) Chloride Level 99mmol/L (97-110) Carbon Dioxide Level 28mmol/L (21-31) Anion Gap 17 (8-16) Blood Urea Nitrogen 18mg/dl (7-20) Creatinine 0.79mg/dl (0.61-1.24) Glucose Level 95mg/dl (70-220) Calcium Level 8.8mg/dl (8.4-10.2) Vancomycin Level Trough 7.5ug/ml (10.0-20.0) NATHALIA SWARTZ NP Sep 11, 2016 19:22 NATHALIA SWARTZ NP Sep 11, 2016 19:22
[2016-09-11] MEDS ORDERED: VANCOMYCIN 750 MG in SOD CHLORIDE 0.9% 150 ML IVPB SCH (23:00)
== END 2016-09-11 17:10 | disposition home or self-care (01) | DRG 872 ==
LOC: E/R 19:50 → TEL 23:26
PROVIDERS: ADMIT Internal Medicine; ATTEND Internal Medicine
DX: A41.9 Sepsis, unspecified organism (principal); F03.90 Unspecified dementia, unspecified severity, without behavioral disturbance, psychotic disturbance, mood disturbance, and anxiety; N12 Tubulo-interstitial nephritis, not specified as acute or chronic; I10 Essential (primary) hypertension; R11.2 Nausea with vomiting, unspecified; R53.81 Other malaise
CPT/HCPCS: 36415; 71010; 80048; 80053; 80202; 81001; 81003; 83605; 83735; 84100; 84484; 85025; 85610; 85730; 87040; 87086; 93005; 96365; 96375; 97116; 97162; 97530; C9113; J0360; J0692; J0696; J1644; J2270; J2405; J2765; J3370; J7030; J7050